=== PATIENT | male | born 1955 | race Caucasian/White ===

== ENCOUNTER → 2016-06-28 | Outpatient (CLI) | payer BC ==
[~2016-06-28] MED LIST: DULO-24 PO; MIRT15TA PO; SUPER B COMPLEX PO; TAMS0.4C38 PO
--- NOTE | 2016-06-28 09:07 | DIAGNOSTIC IMAGING REPORT ---
ABDOMEN COMPLETE (US) CLINICAL HISTORY: Nausea. Abdominal pain. COMPARISON STUDY: Right upper quadrant all ultrasound September 12, [address] of the abdomen and pelvis June 27, 2014. FINDINGS: Liver morphology is normal. Several echogenic hepatic lesions are similar to exam of September 12, 2012 and June 27, 2014. The largest is a 5.8 cm left hepatic lobe lesion. These are suggestive of hemangiomas. A few tiny gallbladder polyps are noted. There is no gallbladder wall thickening. No gallstones are identified. The pancreas is partially obscured by overlying bowel gas. The pancreatic body is normal. There is no biliary ductal dilatation. The size of the spleen is normal. The right kidney measures 11.4 cm and the left measures 11.1 cm. There is no hydronephrosis. A 1.2 cm right renal cyst is noted. The caliber of the abdominal aorta is normal. Visualized portions of the IVC are patent. IMPRESSION: 1. No significant change in several echogenic hepatic lesions highly suggestive of hemangiomas. 2. No gallstones or biliary ductal dilatation. A few small gallbladder polyps. 3. No hydronephrosis. Electronically signed by: Simon Jeffers M.D. 06/28/2016 9:06 AM Dictated Date/Time: 06/28/2016 9:02 AM
--- NOTE | 2016-06-28 09:30 | DIAGNOSTIC IMAGING REPORT ---
GI SERIES W/AIR ROUTINE CLINICAL HISTORY: Epigastric pain. Assess for hernia. COMPARISON STUDY: None. FLUOROSCOPY TIME: 1.6 minutes. 25 images submitted. FINDINGS: The patient swallowed barium without difficulty. The esophagus is normal in course, caliber, and motility. No hiatus hernia. No gastroesophageal reflux. No gastric ulcerations. The duodenal bulb and duodenal C sweep are within normal limits. IMPRESSION: Normal upper GI series. No hiatus hernia. Electronically signed by: Vance Hart M.D. 06/28/2016 9:29 AM Dictated Date/Time: 06/28/2016 9:27 AM
[2016-06-28 09:38] LABS: BASO % 0.3 %; BASO ABS # 0.02 K/uL (0-0.2); COMPLETE YES; EOS % 1.6 %; HEMATOCRIT 43.5 % (42-52); IG% 0.1 %; LYMPH % 17.1 %; LYMPH ABS # 1.31 K/uL (1.2-3.4); MEAN CELL VOLUME 89.1 fL (80-100); MEAN CORPUSCULAR HEMOGLOBIN 30.1 pg (25-34); MEAN CORPUSCULAR HGB CONC 33.8 g/dl (32-36); MEAN PLATELET VOLUME 10.6 fL (7.4-10.4); MONO % 8.5 %; NEUT % 72.4 %; PLATELET COUNT 254 K/uL (130-400); RED BLOOD COUNT 4.88 M/uL (4.7-6.1); WHITE BLOOD COUNT 7.65 K/uL (4.8-10.8)
[2016-06-28 09:51] LABS: ALB/GLOB RATIO 1.2 (0.9-2); ALT/SGPT 28 U/L (12-78); BLOOD UREA NITROGEN 16 mg/dl (7-18); BUN/CREATININE RATIO 16.6 (10-20); CARBON DIOXIDE 28 mmol/L (21-32); CHLORIDE 107 mmol/L (98-107); CHOLESTEROL 202 mg/dl (0-200); CREATININE 0.97 mg/dl (0.60-1.40); GLUCOSE 106 mg/dl (70-99); POTASSIUM 4.1 mmol/L (3.5-5.1); SODIUM 142 mmol/L (136-145); TRIGLYCERIDES 108 mg/dl (0-150); VERY LOW DENSITY LIPOPROT CALC 22 mg/dl
[2016-06-28 10:01] LABS: ALKALINE PHOSPHATASE 59 U/L (45-117); AST/SGOT 35 U/L (15-37); CHOLESTEROL/HDL RATIO 4.5; HDL CHOLESTEROL 45 mg/dl; LDL CHOLESTEROL CALCULATED 135 mg/dl
== END | disposition home or self-care (01) ==
LOC: C.ULTR 07:16
PROVIDERS: ATTEND Physician Assistant
DX: R53.83 Other fatigue (principal); E78.5 Hyperlipidemia, unspecified; E66.3 Overweight; N40.0 Benign prostatic hyperplasia without lower urinary tract symptoms; Z12.5 Encounter for screening for malignant neoplasm of prostate; E55.9 Vitamin D deficiency, unspecified; E53.8 Deficiency of other specified B group vitamins; R11.0 Nausea; K21.9 Gastro-esophageal reflux disease without esophagitis

== ENCOUNTER → 2016-07-16 | Outpatient (CLI) | payer BC ==
[~2016-07-16] MED LIST changes: +SINCALIDE INJ 1.7 MCG in SODIUM CHLORIDE 0.9% 100ML 100 ML IV ONE
--- NOTE | 2016-07-16 15:41 | DIAGNOSTIC IMAGING REPORT ---
NUCLEAR MEDICINE HEPATOBILIARY SCAN WITH EJECTION FRACTION HISTORY: Pain. Nausea. R10.13 COMPARISON: None. TECHNIQUE: Immediately following the intravenous administration of 5 mCi Tc-99m Choletec, dynamic anterior abdominal imaging pre/post 1.7 mcg of Kinevac was performed. FINDINGS: Uniform hepatic tracer accumulation is shown. Prompt intrahepatic biliary excretion is seen. The gallbladder, common bile duct, and small bowel are all visualized by 80 minutes. This appearance represents the normal sequence of biliary excretion. The gallbladder ejection fraction following administration of Kinevac was 77 % (normal >35%). IMPRESSION: 1. No evidence for cystic duct obstruction. 2. Gallbladder ejection fraction calculated to be 77 %. 3. Slight delay in transit of isotope to the small bowel. This may indicate a component of distal common duct sphincter dysfunction Electronically signed by: Oral Weems M.D. 07/16/2016 3:39 PM Dictated Date/Time: 07/16/2016 3:37 PM
== END | disposition home or self-care (01) ==
LOC: C.NUCL 12:22
PROVIDERS: ATTEND Family Medicine
DX: R10.13 Epigastric pain (principal)

== ENCOUNTER → 2016-09-07 | Outpatient (CLI) | payer BC ==
[~2016-09-07] MED LIST changes: -SINCALIDE INJ 1.7 MCG in SODIUM CHLORIDE 0.9% 100ML 100 ML IV ONE
--- NOTE | 2016-09-07 09:01 | DIAGNOSTIC IMAGING REPORT ---
CHEST 2 VIEWS ROUTINE CLINICAL HISTORY: J06.9 dyspnea COMPARISON STUDY: No previous studies for comparison. FINDINGS: Small nodular density left lung base. Clinical second infrahilar nodule. Lungs otherwise appear clear. Diaphragms are smooth. IMPRESSION: 1 and possibly [address] left [address] parenchymal nodules. CT of chest is recommended as follow-up. The above report was generated using voice recognition software. It may contain grammatical, syntax or spelling errors. Electronically signed by: Oral Weems M.D. 09/07/2016 9:00 AM Dictated Date/Time: 09/07/2016 8:56 AM
== END | disposition home or self-care (01) ==
LOC: C.RAD1850 08:42
PROVIDERS: ATTEND Student in an Organized Health Care Education/Training Program
DX: J06.9 Acute upper respiratory infection, unspecified (principal); R91.8 Other nonspecific abnormal finding of lung field

== ENCOUNTER → 2016-09-13 | Outpatient (CLI) | payer BC ==
--- NOTE | 2016-09-13 07:59 | DIAGNOSTIC IMAGING REPORT ---
CT OF THE CHEST WITHOUT IV CONTRAST CLINICAL HISTORY: Cough. Abnormal chest radiograph. Family history of lung cancer. COMPARISON STUDY: CT of the abdomen and pelvis May 24, 2014 and chest radiograph September 07, 2016. CT DOSE: 301.79 mGy.cm TECHNIQUE: Axial images of the chest were obtained without IV contrast. Images were reviewed in the axial, sagittal, and coronal planes. IV contrast was not administered for this examination. A dose lowering technique was utilized adhering to the principles of ALARA. FINDINGS: No enlarged axillary, mediastinal or hilar lymph nodes are present. The size of the heart is at upper limits of normal. Central airways are patent. There is no pneumothorax or pleural effusion. There is minimal right middle lobe opacity. This is nonspecific. Mild lingular opacity favors atelectasis. No pulmonary nodules are present. The possible nodules shown on prior radiographs were artifactual and one may have reflected the left nipple shadow. Groundglass opacities within the remainder of the lungs favor atelectasis. There is no honeycombing. There is no lobar consolidation. No cavitation is present. Bony thorax is unremarkable. A 5.3 x 4.8 cm lateral segment hepatic lesion is unchanged since CT of May 24, 2014. This has a central scar likely reflects a tiny hemangioma. IMPRESSION: 1. No pulmonary nodules. The possible left lung nodules shown on exam of September 07, 2016 were artifactual and one may represent the left nipple shadow. 2. Minimal right middle lobe opacity with mucoid impaction which could reflect a mild infectious process such as bronchiolitis. 3. No change in a 5.3 cm lateral segment hepatic lesion since CT of May 24, 2014. 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 Electronically signed by: Simon Jeffers M.D. 09/13/2016 7:58 AM Dictated Date/Time: 09/13/2016 7:42 AM
== END | disposition home or self-care (01) ==
LOC: C.CTS 07:31
PROVIDERS: ATTEND Student in an Organized Health Care Education/Training Program
DX: R05 Cough (principal); R93.8 Abnormal findings on diagnostic imaging of other specified body structures